=== PATIENT | female | born 1960 | race Caucasian/White ===

== ENCOUNTER 2020-04-28 17:42 | Emergency (ER) | payer OTHER ==
[~2020-04-28] VITALS: Ht 160 cm; Wt 75.9 kg
[2020-04-28 17:55] VITALS: BP 135/81
--- NOTE | 2020-04-28 18:37 | PHYS DOC ---
Past History Past Medical History: High Cholesterol Past Surgical History: No Surgical History Alcohol Use: None General Adult EDM: Chief Complaint: BACK PAIN OR INJURY HPI: HPI: Patient is a 10-year-old female coming in with 3 days of left lower back pain that radiates around her side. She has been moving some things on shelves and doing lifting and twisting motions prior to the pain. 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 Denies any bladder or bowel incontinence. Urine is darker than normal states she has not been drinking much water has been drinking a lot of tea. Denies any fever. No personal history of kidney stones. Review of Systems: Review of Systems: Constitutional: Denies fever or chills Eyes: Denies change in visual acuity HENT: Denies nasal congestion or sore throat Respiratory: Denies cough or shortness of breath Cardiovascular: Denies chest pain or edema GI: Denies abdominal pain, nausea, vomiting, bloody stools or diarrhea : Denies dysuria Musculoskeletal: Denies left lower back pain, no point spinal tenderness. Integument: Denies rash Neurologic: Denies headache, focal weakness or sensory changes Endocrine: Denies polyuria or polydipsia Lymphatic: Denies swollen glands Psychiatric: Denies depression or anxiety Heart Score: Risk Factors: Risk Factors: DM, Current or recent (<one month) smoker, HTN, HLP, family history of CAD, obesity. Risk Scores: Score 0 - 3: 2.5% MACE over next 6 weeks - Discharge Home Score 4 - 6: 20.3% MACE over next 6 weeks - Admit for Clinical Observation Score 7 - 10: 72.7% MACE over next 6 weeks - Early Invasive Strategies Allergies: Allergies: Allergies Coded Allergies Type Severity Reaction Last Updated Verified No Known Drug Allergies 04/28/20 No Physical Exam: PE: Constitutional: Well developed, well nourished, no acute distress, non-toxic appearance. [] HENT: Normocephalic, atraumatic, bilateral external ears normal, oropharynx moist, no oral exudates, nose normal. [] Eyes: PERRLA, EOMI, conjunctiva normal, no discharge. [] Neck: Normal range of motion, no tenderness, supple, no stridor. [] Cardiovascular:Heart rate regular rhythm, no murmur [] Lungs & Thorax: Bilateral breath sounds clear to auscultation [] Abdomen: Bowel sounds normal, soft, no tenderness, no masses, no pulsatile masses. [] Skin: Warm, dry, no erythema, no rash. [] Back: Tenderness for left lower lumbar area. Extremities: No tenderness, no cyanosis, no clubbing, ROM intact, no edema. [] Neurologic: Alert and oriented X 3, normal motor function, normal sensory function, no focal deficits noted. [] Psychologic: Affect normal, judgement normal, mood normal. [] Current Patient Data: Vital Signs: Vital Signs Date Time Temp Pulse Resp B/P (MAP) Pulse Ox O2 Delivery O2 Flow Rate FiO2 04/28/20 17:55 97.9 90 18 135/81 (99) 100 EKG: EKG: [] Radiology/Procedures: Radiology/Procedures: [] Course & Med Decision Making: Course & Med Decision Making Pertinent Labs and Imaging studies reviewed. (See chart for details) [] Dragon Disclaimer: Dragon Disclaimer: This electronic medical record was generated, in whole or in part, using a voice recognition dictation system. Departure Departure: Disposition: 01 [place] HOME SELF CARE/HOMELESS Condition: STABLE Referrals: ADARSH WEBER (PCP) Patient Instructions: Back Pain, Adult Scripts Meloxicam (MELOXICAM) 7.5 Mg Tablet 7.5 MG PO BID for pain for 10 Days, #20 TAB 0 Refills Prov: TIFF SOSA MD 04/28/20 TIFF SOSA MD Apr 28, 2020 18:37
[2020-04-28 19:17] LABS: COLOR,URINE YELLOW
[2020-04-28 19:18] LABS: BILIRUBIN,URINE SMALL (NEG); CLARITY,URINE CLEAR; GLUCOSE,URINE NEG (NEG); NITRITE,URINE NEG (NEG); RBC,URINE 0 /HPF (0-2); UROBILINOGEN,URINE 0.2 mg/dL (0.2 mg/dL); WBC,URINE 0 /HPF (0-4)
[2020-04-28 19:22] LABS: BACTERIA,URINE 0 /HPF (0-FEW); SQUAMOUS EPITHELIAL CELL,UR MOD /LPF; YEAST,URINE PRESENT /HPF
[2020-04-28] MEDS ORDERED: MELO7.5T29 PO (19:29)
== END 2020-04-28 19:32 | disposition home or self-care (01) ==
LOC: ER 17:42
DX: M54.5 Low back pain (principal); E78.00 Pure hypercholesterolemia, unspecified
CPT/HCPCS: 81001; 99283

== ENCOUNTER 2020-07-09 09:53 | Emergency (ER) | payer OTHER ==
[~2020-07-09] VITALS: Ht 160 cm; Wt 75.9 kg
[~2020-07-09 09:53] MED LIST: MELO7.5T29 PO
[2020-07-09 10:02] VITALS: BP 135/66
--- NOTE | 2020-07-09 10:06 | PHYS DOC ---
Past History Past Medical History: High Cholesterol Past Surgical History: No Surgical History Alcohol Use: None Adult General Chief Complaint Chief Complaint: MECHANICAL FALL HPI HPI Patient is a 60-year-old female presenting for follow-up. This occurred yesterday while walking dog. States she tripped over anti-mole fence in her front yard and fell onto her left anterior knee, subsequently hit her right upper extremity and right side of her face. Complaining of left knee pain, right upper extremity pain and right facial pain. Did not lose consciousness, is not on any blood thinners. Has been ambulatory since event, no syncope, no lightheadedness, no changes in vision. Admits waxing and waning headache and focal pain to right orbit at this time. She has numerous abrasions from the fall, tetanus is not up-to-date Review of Systems Review of Systems Fourteen body systems of review of systems have been reviewed. See HPI for pertinent positives and negative responses, other hyde all other systems are negative, non-pertinent or non-contributory Allergies Allergies Allergies Coded Allergies Type Severity Reaction Last Updated Verified No Known Drug Allergies 04/28/20 No Physical Exam Physical Exam Constitutional: Pt is oriented to person, place, and time. Pt appears well-developed and well- nourished. HEENT: Head: Normocephalic and atraumatic. TMs clear, no hemotympanum Conjunctivae and EOM are normal. Pupils are equal, round, and reactive to light. Oropharynx is clear and moist. Dentures present. Left inferior lip trauma from denture biting into lip during fall present, not full-thickness, partial superficial tear without need for repair No hematomas or lacerations or abrasions to face or scalp OP clear, no blood, no malocclusion, dentition intact Nares clear, no nasal septal hematoma Midface stable but there is tenderness to palpation on inferior right orbit without palpable abnormalities Neck: C-spine midline nontender, no step-offs Cardiovascular: Normal rate, regular rhythm and normal heart sounds. Pulmonary/Chest: Effort normal and breath sounds normal. No respiratory distress. No wheezes. CTA bilaterally Abdominal: Soft. Bowel sounds are normal. Pt exhibits no distension. There is no tenderness. Musculoskeletal: No bony tenderness to extremities, negative Corrales knee rule to left knee, unremarkable examination of right upper extremity, no deformities, full ROM extremities Chest wall stable Pelvis stable and non-tender No vertebral TTP and spine without stepoffs Neurological: Pt is alert and oriented to person, place, and time. Moving all extremities willfully, able to wiggle all fingers and toes Alert and oriented x 3 Sensation grossly intact Skin: Skin is warm and dry. No lacerations, abrasions noted to left anterior knee and right cheek and forehead superficial in nature Psychiatric: Behavior is appropriate for situation EKG EKG [] Radiology/Procedures Radiology/Procedures XR FACIAL BONES COMPLETE 3+ VIEWS 07/09/2020 10:15 AM INDICATION: Right orbital pain status post fall COMPARISON: None available. TECHNIQUE: 3 views of the facial bones are provided. FINDINGS/ IMPRESSION: 1. Osseous orbits are intact. No acute displaced fracture is identified. Paranasal sinuses are well aerated. Skull base is intact. 2. Nasal septum is predominantly midline. No calvarial fracture is identified. 3. Patient is edentulous. Electronically signed by: Yasmine Weston MD (07/09/2020 10:32 AM) [id number] Heart Score Risk Factors: Risk Factors: DM, Current or recent (<one month) smoker, HTN, HLP, family history of CAD, obesity. Risk Scores: Risk Factors: DM, Current or recent (<one month) smoker, HTN, HLP, family history of CAD, obesity. Course & Med Decision Making Course & Med Decision Making Pertinent Labs and Imaging studies reviewed. (See chart for details) [] Dragon Disclaimer Dragon Disclaimer This electronic medical record was generated, in whole or in part, using a voice recognition dictation system. Departure Departure: Impression: Primary Impression: Contusion Additional Impression: Abrasion Disposition: 01 [place] HOME SELF CARE/HOMELESS Condition: STABLE Referrals: ADARSH WEBER (PCP) Patient Instructions: Abrasions, Contusion Additional Instructions: You were seen for musculoskeletal pain. You should return to the ED if you develop worsening pain, fever, numbness, tingling, weakness, or any other new or concerning symptoms. Your pain is most likely due to a muscle strain and should improve with ibuprofen, stretching, and activity. Do not drink, drive, or do anything important while taking flexeril because it can make you sleepy. Regardless, you should follow up with your primary care physician for repeat evaluation and consideration for outpatient physical therapy as needed Problem Qualifiers SIN CABRALES DO Jul 09, 2020 10:06
--- NOTE | 2020-07-09 10:34 | RAD ---
XR FACIAL BONES COMPLETE 3+ VIEWS 07/09/2020 10:15 AM INDICATION: Right orbital pain status post fall COMPARISON: None available. TECHNIQUE: 3 views of the facial bones are provided. FINDINGS/ IMPRESSION: 1. Osseous orbits are intact. No acute displaced fracture is identified. Paranasal sinuses are well a erated. Skull base is intact. 2. Nasal septum is predominantly midline. No calvarial fracture is identified. 3. Patient is edentulous. Electronically signed by: Yasmine Weston MD (07/09/2020 10:32 AM) [id number]
[2020-07-09] MEDS ORDERED: DIPH,PERTUSS(ACELL),TET VAC/PF 0.5 ML SYRINGE. VAX IM ONE (11:00)
== END 2020-07-09 11:21 | disposition home or self-care (01) ==
LOC: ER 09:53
DX: S00.83XA Contusion of other part of head, initial encounter (principal); M25.562 Pain in left knee; Z23 Encounter for immunization; W01.0XXA Fall on same level from slipping, tripping and stumbling without subsequent striking against object, initial encounter; Y93.89 Activity, other specified; Y92.89 Other specified places as the place of occurrence of the external cause; Y99.8 Other external cause status
CPT/HCPCS: 70150; 90471; 90715; 99283-25

== ENCOUNTER → 2021-03-04 | Outpatient (CLI) | payer OTHER ==
--- NOTE | 2021-03-04 14:43 | RAD ---
EXAM: AP, lateral and open-mouth odontoid views of the cervical spine DATE: 03/04/2021 10:12 AM CLINICAL HISTORY: Reason: / Spl. Instructions: / History: COMPARISON: None available. FINDINGS: On the lateral view, the cervical spine is imaged from the skull base to C6. Vertebral body heights are preserved. Mild C4-5, C5-6 disc height loss. Trace anterolisthesis of C4 o n C5. Straightening of the normal cervical lordosis. Moderate facet degenerative changes. Normal predental space. No significant prevertebral soft tissue swelling. IMPRESSION: 1. Multilevel spondylosis as above 2. Negative acute fracture. 3. Trace anterolisthesis of C4 on C5 likely degenerative. Electronically signed by: Shlomo Saunders MD (03/04/2021 2:40 PM) [id number]
--- NOTE | 2021-03-04 14:43 | RAD ---
Exam: Thoracic spine Date: 03/04/2021 10:12 AM CLINICAL HISTORY: Reason: / Spl. Instructions: / History: COMPARISON: None available. FINDINGS: AP and lateral/swimmers views of the thoracic spine submitted. There is mild superimposed a rtifact at the cervicothoracic junction on the lateral view per technique. Mild disc height loss at several mid thoracic discs. Negative degenerative/proliferative changes. Neg ative compression fracture. Negative malalignment. Negative focal paraspinal line deviation/hematom a. IMPRESSION: Mild degenerative changes. No acute fracture or subluxation. Electronically signed by: Shlomo Saunders MD (03/04/2021 2:41 PM) [id number]
--- NOTE | 2021-03-04 14:44 | RAD ---
EXAM: AP and lateral views of both knees DATE: 03/04/2021 10:12 AM INDICATION: Reason: / Spl. Instructions: / History: COMPARISON: No Prior FINDINGS: No acute fracture or dislocation. No joint effusion. Joint spaces are preserved without significant degenerative/proliferative change. IMPRESSION: No acute fracture or dislocation. Electronically signed by: Shlomo Saunders MD (03/04/2021 2:42 PM) [id number]
== END ==
LOC: RAD 10:04
PROVIDERS: ATTEND Hospitalist
DX: M47.812 Spondylosis without myelopathy or radiculopathy, cervical region (principal)
CPT/HCPCS: 72040; 72072; 73560

== ENCOUNTER 2021-04-01 11:14 | Emergency (ER) | payer OTHER ==
[~2021-04-01] VITALS: Ht 160 cm; Wt 75.9 kg
--- NOTE | 2021-04-01 11:30 | PHYS DOC ---
Past History Past Medical History: High Cholesterol (MATTY RETANA APRN) Past Surgical History: Appendectomy, Cholecystectomy (MATTY RETANA APRN) Alcohol Use: None (MATTY RETANA APRN) General Adult EDM: Chief Complaint: WEAKNESS/GENERALIZED HPI: HPI: Patient is a 61-year-old female who presents to the ER for fatigue and joint pain for 1 year. Patient was referred to a tube depatcher by her primary care provider's office and she had blood work performed. She had elevated PATRICIA levels but negative RF. Patient states that she just wants some pain control because she just has joint pain that keeps her from sleeping. She denies cough, fevers, shortness of breath. (MATTY RETANA APRN) Review of Systems: Review of Systems: 14 body systems of the review of systems have been reviewed. See HPI for pertinent positive and negative responses, otherwise all other systems are negative, nonpertinent or noncontributory (MATTY RETANA APRN) Allergies: Allergies: Allergies Coded Allergies Type Severity Reaction Last Updated Verified No Known Drug Allergies 04/28/20 No (MATTY RETANA APRN) Physical Exam: PE: Constitutional: Well developed, well nourished, no acute distress, non-toxic appearance. [] HENT: Normocephalic, atraumatic, bilateral external ears normal, oropharynx moist, no oral exudates, nose normal. [] Eyes: PERRL, EOMI, conjunctiva normal, no discharge. [] Neck: Normal range of motion, no stridor Cardiovascular:Heart rate regular rhythm, no murmur [] Lungs & Thorax: Bilateral breath sounds clear to auscultation [] Abdomen: Bowel sounds normal, soft, no tenderness, no masses, no pulsatile masses. [] Skin: Warm, dry, no erythema, no rash. [] Back: Normal range of motion Extremities: No tenderness, no cyanosis, no clubbing, ROM intact, no edema. [] Neurologic: Alert and oriented X 3, normal motor function, normal sensory function, no focal deficits noted. [] Psychologic: Affect normal, judgement normal, mood normal. [] (MATTY RETANA APRN) Current Patient Data: Labs: Laboratory Tests Test 04/01/21 11:27 04/01/21 12:00 White Blood Count 10.4 x10^3/uL Red Blood Count 5.02 x10^6/uL Hemoglobin 15.5 g/dL Hematocrit 45.5 % Mean Corpuscular Volume 91 fL Mean Corpuscular Hemoglobin 31 pg Mean Corpuscular Hemoglobin Concent 34 g/dL Red Cell Distribution Width 13.3 % Platelet Count 291 x10^3/uL Neutrophils (%) (Auto) 64 % Lymphocytes (%) (Auto) 27 % Monocytes (%) (Auto) 7 % Eosinophils (%) (Auto) 2 % Basophils (%) (Auto) 1 % Neutrophils # (Auto) 6.6 x10^3uL Lymphocytes # (Auto) 2.7 x10^3/uL Monocytes # (Auto) 0.7 x10^3/uL Eosinophils # (Auto) 0.2 x10^3/uL Basophils # (Auto) 0.1 x10^3/uL Sodium Level 139 mmol/L Potassium Level 4.5 mmol/L Chloride Level 103 mmol/L Carbon Dioxide Level 28 mmol/L Anion Gap 8 Blood Urea Nitrogen 12 mg/dL Creatinine 0.8 mg/dL Estimated GFR (Cockcroft-Gault) 73.4 BUN/Creatinine Ratio 15 Glucose Level 116 mg/dL Calcium Level 9.7 mg/dL Total Bilirubin 0.3 mg/dL Aspartate Amino Transf (AST/SGOT) 21 U/L Alanine Aminotransferase (ALT/SGPT) 33 U/L Alkaline Phosphatase 124 U/L Troponin I Quantitative < 0.017 ng/mL Total Protein 7.4 g/dL Albumin 3.9 g/dL Albumin/Globulin Ratio 1.1 Urine Collection Type Unknown Urine Color Yellow Urine Clarity Cloudy Urine pH 7.0 Urine Specific [place] 1.020 Urine Protein Neg Urine Glucose (UA) Neg mg/dL Urine Ketones (Stick) Neg mg/dL Urine Blood Neg Urine Nitrite Pos Urine Bilirubin Neg Urine Urobilinogen Dipstick 0.2 mg/dL Urine Leukocyte Esterase Neg Urine RBC 1-2 /HPF Urine WBC 1-4 /HPF Urine Squamous Epithelial Cells Mod /LPF Urine Bacteria Many /HPF Current Medications Medications (Trade) Dose Ordered Sig/Jamil Route PRN Reason Start Time Stop Time Status Last Admin Dose Admin Ketorolac Tromethamine (Toradol 30mg Vial) 30 mg 1X ONCE IVP 04/01/21 11:30 04/01/21 11:54 DC 04/01/21 12:14 Fentanyl Citrate (Fentanyl 2ml Vial) 50 mcg 1X ONCE IVP 04/01/21 11:30 04/01/21 11:54 DC 04/01/21 12:14 Sodium Chloride 1,000 ml @ 1,000 mls/hr 1X ONCE IV 04/01/21 11:45 04/01/21 12:44 DC 04/01/21 12:14 Vital Signs: Vital Signs Date Time Temp Pulse Resp B/P (MAP) Pulse Ox O2 Delivery O2 Flow Rate FiO2 04/01/21 11:20 98.4 86 16 155/97 (116) 100 Room Air (MATTY RETANA APRN) EKG: EKG: KG performed by ER staff at 1246 shows sinus rhythm, no STEMI read by Dr. Polanco at 1253. (MATTY RETANA APRN) Radiology/Procedures: Radiology/Procedures: [] (MATTY RETANA APRN) Heart Score: C/O Chest Pain: No Risk Factors: Risk Factors: DM, Current or recent (<one month) smoker, HTN, HLP, family history of CAD, obesity. Risk Scores: Score 0 - 3: 2.5% MACE over next 6 weeks - Discharge Home Score 4 - 6: 20.3% MACE over next 6 weeks - Admit for Clinical Observation Score 7 - 10: 72.7% MACE over next 6 weeks - Early Invasive Strategies (MATTY RETANA APRN) Course & Med Decision Making: Course & Med Decision Making Pertinent Labs and Imaging studies reviewed. (See chart for details) [] Patient is a 61-year-old female being seen in the ER for fatigue and joint pain x1 year. Patient was noted to have elevated PATRICIA from her tube depatcher. She states that she has not been diagnosed with an autoimmune disorder yet. Patient states that she just would like pain management. Work-up in the ER consisted of blood work, urinalysis, Covid testing. Patient advised to self isolate until she receives her Covid test. Patient treated with anti- inflammatory medications and pain medication. Lab results are unremarkable. Patient advised to follow-up with her tube depatcher for further testing. Patient will be discharged home with pain medication. I discussed with patient all findings and diagnostic testing as well as the need to follow-up with PCP for further evaluation and treatment or return to the ER if any new or worsening symptoms. Strict return precautions were also discussed at length. Patient voiced understanding and agreement with the plan. Patient is hemodynamically stable at the time of disposition. (MATTY RETANA APRN) Course & Med Decision Making I was the Attending physician on the above date of service of this patient. This patient was evaluated, examined, treated, and dispositioned from the emergency department by the mid-level practitioner. Although I was working at the time , no assistance was requested. Electronically signed, Sin Cabrales DO (SIN CABRALES DO) Boom Disclaimer: Boom Disclaimer: This electronic medical record was generated, in whole or in part, using a voice recognition dictation system. (MATTY RETANA APRN) Departure Departure: Impression: Primary Impression: Fatigue Qualified Codes: R53.82 - Chronic fatigue, unspecified Disposition: HOME / SELF CARE / HOMELESS Condition: GOOD Referrals: ADARSH WEBER (PCP) Patient Instructions: PATRICIA (Antinuclear Antibody Test), Fatigue Additional Instructions: You were seen in the ER for generalized pain and fatigue. As we discussed, I reviewed your lab work from the tube depatcher and you have an elevation in your PATRICIA which may indicate an autoimmune disorder. Your lab work in the ER was unremarkable. We tested you in the ER today for COVID-19. You will be notified of these results when they become available in approximately 2 days, please self isolate until you receive these results. Please follow-up with your tube depatcher regarding further testing and treatment. You are being discharged home with some pain medication. For mild pain take ibuprofen or naproxen for severe pain you can take this medication that you are being prescribed. This medication contains hydrocodone and may cause sedation, do not take any need to be alert and do not take with alcohol. If you develop worsening of your pain, increased weakness, high fevers refractory to treatment, chest pain, shortness of breath falls, intractable nausea or vomiting please return to the ER. EMERGENCY DEPARTMENT GENERAL DISCHARGE INSTRUCTIONS Thank you for coming to [facility] (ED) today and trusting us with you care. We trust that you had a positivie experience in our Emergency Department. If you wish to speak to the department management, you may call the director at [phone]. YOUR FOLLOW UP INSTRUCTIONS ARE FOLLOWS: 1. Do you have a private Doctor? If you do not have a private doctor, please ask for a resource list of physicians or clinics that may be able to assist you with follow up care. 2. The Emergency Physician has interpreted your x-rays. The X-Ray specialist will also review them. If there is a change in the findings, you will be notified in 48 hours when at all possible. 3. A lab test or culture has been done, your results will be reviewed and you will be notified if you need a change in treatment. ADDITIONAL INSTRUCTIONS AND INFORMATION: 1. Your care today has been supervised by a physician who is specially trained in emergency care. Many problems require more than one evaluation for a complete diagnosis and treatment. We recommend that you schedule your follow up appointment as recommended to ensure complete treatment of you illness or injury. If you are unable to obtain follow up care and continue to have a problem, or if your condition worsens, we recommend that you return to the ED. 2. We are not able to safely determine your condition over the phone nor are we able to give sound medical advice over the phone. For these safety reasons, if you call for medical advice we will ask you to come to the ED for further evaluation. 3. If you have any questions regarding these discharge instructions please call the ED at [phone]. SAFETY INFORMATION: In the interest of safety, wellness, and injury prevention; we encourage you to wear your sealbelt, if you smoke; quite smoking, and we encourage family to use a protective helmet for bicycling and other sporting events that present an increased risk for head injury. IF YOUR SYMPTOMS WORSEN OR NEW SYMPTOMS DEVELOP, OR YOU HAVE CONCERNS ABOUT YOUR CONDITION; OR IF YOUR CONDITION WORSENS WHILE YOU ARE WAITING FOR YOUR FOLLOW UP APPOINTMENT; EITHER CONTACT YOUR PRIMARY CARE DOCTOR, THE PHYSICIAN WHOSE NAME AND NUMBER YOU WERE GIVEN, OR RETURN TO THE ED IMMEDIATELY. MATTY RETANA APRN Apr 01, 2021 11:30 SIN CABRALES DO Apr 04, 2021 06:29
[2021-04-01 11:51] LABS: CALCIUM 9.7 mg/dL (8.5-10.1); CREATININE 0.8 mg/dL (0.6-1.0); GFR 73.4; POTASSIUM 4.5 mmol/L (3.5-5.1)
[2021-04-01 11:52] LABS: BASO # 0.1 x10^3/uL (0.0-0.2); BASO % 1 % (0-3); EOS # 0.2 x10^3/uL (0.0-0.7); EOS % 2 % (0-3); HEMATOCRIT 45.5 % (36.0-47.0); HEMOGLOBIN 15.5 g/dL (12.0-15.5); LYMPH # 2.7 x10^3/uL (1.0-4.8); LYMPH % 27 % (24-48); MEAN CORPUSCULAR HEMOGLOBIN 31 pg (25-35); MEAN CORPUSCULAR HGB CONC 34 g/dL (31-37); MEAN CORPUSCULAR VOLUME 91 fL (79-100); MONO # 0.7 x10^3/uL (0.0-1.1); MONO % 7 % (0-9); NEUT # 6.6 x10^3uL (1.8-7.7); NEUT % 64 % (31-73); PLATELET COUNT 291 x10^3/uL (140-400); RED BLOOD COUNT 5.02 x10^6/uL (3.50-5.40); RED CELL DISTRIBUTION WIDTH 13.3 % (11.5-14.5); WHITE BLOOD COUNT 10.4 x10^3/uL (4.0-11.0)
[2021-04-01 11:57] LABS: ALBUMIN 3.9 g/dL (3.4-5.0); ALBUMIN/GLOBULIN RATIO 1.1 (1.0-1.7); TOTAL BILIRUBIN 0.3 mg/dL (0.2-1.0); TOTAL PROTEIN 7.4 g/dL (6.4-8.2)
[2021-04-01] MEDS: KETOROLAC 30 MG/ML VIAL. IVP ONE (12:14)
[2021-04-01] MEDS: IV NORMAL SALINE 1,000ML 1,000 ML IV ONE (12:14)
[2021-04-01 12:50] LABS: BACTERIA,URINE MANY /HPF (0-FEW); BILIRUBIN,URINE NEG (NEG); CLARITY,URINE CLOUDY; COLOR,URINE YELLOW; GLUCOSE,URINE NEG (NEG); NITRITE,URINE POS (NEG); SQUAMOUS EPITHELIAL CELL,UR MOD /LPF; UROBILINOGEN,URINE 0.2 mg/dL (0.2 mg/dL)
[2021-04-01 13:18] VITALS: BP 136/85
--- NOTE | 2021-04-01 15:45 | EKG ---
[address] [address] Test Date: 2021-04-01 Test Time: 12:46:34 Pat Name: BENNY FOX Department: Room: Gender: F Story Analyst: EDIL : 1960 Requested By: MATTY RETANA Order Number: [id number] Reading MD: Measurements Intervals [place] Rate: 54 P: 69 SD: 148 QRS: 61 QRSD: 80 T: 44 QT: 436 QTc: 415 Interpretive Statements SINUS RHYTHM NORMAL ECG RI6.02 No previous ECG available for comparison
--- NOTE | 2021-04-02 11:09 | NUR ---
IP: Attempted to contact pt concerning covid results. No answer, left a voicemail to return the call.
--- NOTE | 2021-04-02 16:15 | NUR ---
IP: Pt returned my call. Informed pt of negative covid test. Pt verbalized understanding.
== END 2021-04-01 13:19 | disposition home or self-care (01) ==
LOC: ER 11:14
DX: R53.82 Chronic fatigue, unspecified (principal); M25.50 Pain in unspecified joint; E78.00 Pure hypercholesterolemia, unspecified; Z20.822 Contact with and (suspected) exposure to COVID-19; Z90.89 Acquired absence of other organs; Z90.49 Acquired absence of other specified parts of digestive tract
CPT/HCPCS: 80053; 81001; 84484; 85025; 87086; 93005; 96361; 96374; 96375; 99284; C9803; J1885; J3010; J7030; U0003